=== PATIENT | female | born 1965 | race Caucasian/White ===

== ENCOUNTER → 2016-04-13 | Outpatient (CLI) | payer OTHER ==
[2016-04-13 17:15] LABS: HEMOGLOBIN 13.2 gm/dl (12.3-15.3); RED BLOOD COUNT 4.63 M/UL (4.00-5.10); WHITE BLOOD COUNT 4.7 K/UL (4.5-11.0)
[2016-04-13 17:30] LABS: BUN/CREATININE RATIO 12 (0-10)
== END ==
LOC: LAB 15:04
PROVIDERS: Nurse Practitioner
DX: I10 Essential (primary) hypertension (principal); E78.5 Hyperlipidemia, unspecified; E55.9 Vitamin D deficiency, unspecified; M79.7 Fibromyalgia
CPT/HCPCS: 36415; 80053; 80061; 84436; 84443; 84480; 85025

== ENCOUNTER → 2020-03-12 | Outpatient (CLI) | payer BC, MEDICARE | LOC: LAB 15:18 | DX: E87.6 Hypokalemia (principal); E53.8 Deficiency of other specified B group vitamins | CPT/HCPCS: 36415; 82607; 84132 ==

== ENCOUNTER → 2020-06-24 | Outpatient (CLI) | payer BC, MEDICARE ==
[2020-06-24 12:42] LABS: HEMOGLOBIN 13.9 gm/dl (12.3-15.3); RED BLOOD COUNT 4.77 M/UL (4.00-5.10); WHITE BLOOD COUNT 6.4 K/UL (4.5-11.0)
[2020-06-24 15:32] LABS: BUN/CREATININE RATIO 11 (0-10)
[2020-06-25 08:14] LABS: THYROXINE (T4) 9.1 ug/dL (4.5-12.0); VITAMIN D, 25-HYDROXY 31.1 ng/mL (30.0-100.0)
== END ==
LOC: LAB 11:37
PROVIDERS: Nurse Practitioner
DX: E55.9 Vitamin D deficiency, unspecified (principal); E78.5 Hyperlipidemia, unspecified; I10 Essential (primary) hypertension; R30.0 Dysuria
CPT/HCPCS: 36415; 80053; 80061; 84436; 84443; 84480; 85025; 87086

== ENCOUNTER → 2020-08-19 | Outpatient (CLI) | payer BC, MEDICARE ==
[2020-08-19 17:27] LABS: BUN/CREATININE RATIO 9 (0-10)
== END ==
LOC: LAB 15:11
PROVIDERS: Nurse Practitioner
DX: E78.5 Hyperlipidemia, unspecified (principal)
CPT/HCPCS: 36415; 80053; 80061

== ENCOUNTER → 2020-10-15 | Outpatient (CLI) | payer BC, MEDICARE | LOC: RAD 11:51 | DX: U07.1 COVID-19 (principal) | CPT/HCPCS: 71046 ==

== ENCOUNTER → 2020-12-14 | Outpatient (CLI) | payer BC, MEDICARE | LOC: RAD 15:16 | DX: U07.1 COVID-19 (principal) | CPT/HCPCS: 71046 ==

== ENCOUNTER → 2021-03-06 | Outpatient (CLI) | payer BC, MEDICARE | LOC: RAD 13:00 | DX: M53.3 Sacrococcygeal disorders, not elsewhere classified (principal); M47.818 Spondylosis without myelopathy or radiculopathy, sacral and sacrococcygeal region | CPT/HCPCS: 72202 ==

== ENCOUNTER → 2021-03-06 | Outpatient (CLI) | payer BC, MEDICARE ==
[2021-03-06 13:47] LABS: HEMOGLOBIN 14.8 gm/dl (12.3-15.3); RED BLOOD COUNT 5.05 M/UL (4.00-5.10); WHITE BLOOD COUNT 7.3 K/UL (4.5-11.0)
[2021-03-06 14:24] LABS: BUN/CREATININE RATIO 15 (0-10)
== END ==
LOC: LAB 13:14
PROVIDERS: Nurse Practitioner
DX: I10 Essential (primary) hypertension (principal); E78.5 Hyperlipidemia, unspecified; F32.9 Major depressive disorder, single episode, unspecified; E55.9 Vitamin D deficiency, unspecified; M54.50 Low back pain, unspecified; R53.83 Other fatigue
CPT/HCPCS: 80053; 80061; 81001; 84436; 84443; 84480; 85025

== ENCOUNTER → 2021-06-23 | Outpatient (CLI) | payer BC, MEDICARE ==
[2021-06-23 16:39] LABS: HEMOGLOBIN 12.2 gm/dl (12.3-15.3); RED BLOOD COUNT 4.15 M/UL (4.00-5.10); WHITE BLOOD COUNT 5.3 K/UL (4.5-11.0)
[2021-06-23 16:59] LABS: BUN/CREATININE RATIO 15 (0-10)
[2021-06-25 07:12] LABS: THYROXINE (T4) 7.6 ug/dL (4.5-12.0)
[2021-06-25 08:15] LABS: VITAMIN D, 25-HYDROXY 38.5 ng/mL (30.0-100.0)
== END ==
LOC: LAB 15:43
PROVIDERS: Nurse Practitioner
DX: E03.9 Hypothyroidism, unspecified (principal); E55.9 Vitamin D deficiency, unspecified; I10 Essential (primary) hypertension; E78.5 Hyperlipidemia, unspecified; R53.83 Other fatigue; F41.9 Anxiety disorder, unspecified
CPT/HCPCS: 36415; 80053; 80061; 81001; 84436; 84443; 84480; 85025

== ENCOUNTER → 2021-07-31 | Outpatient (CLI) | payer BC, MEDICARE ==
[2021-07-31 19:25] LABS: HEMOGLOBIN 13.8 gm/dl (12.3-15.3); RED BLOOD COUNT 4.67 M/UL (4.00-5.10); WHITE BLOOD COUNT 5.5 K/UL (4.5-11.0)
[2021-08-02 09:27] LABS: VITAMIN D, 25-HYDROXY 51.9 ng/mL (30.0-100.0)
[2021-08-02 11:15] LABS: THYROXINE (T4) 8.4 ug/dL (4.5-12.0)
== END ==
LOC: LAB 18:27
PROVIDERS: Nurse Practitioner
DX: E05.90 Thyrotoxicosis, unspecified without thyrotoxic crisis or storm (principal); D64.9 Anemia, unspecified; D72.829 Elevated white blood cell count, unspecified; R53.83 Other fatigue
CPT/HCPCS: 81001; 82607; 84436; 84443; 84480; 85025

== ENCOUNTER → 2021-10-13 | Outpatient (CLI) | payer BC, MEDICARE | LOC: RAD 18:25 | DX: M25.512 Pain in left shoulder (principal) | CPT/HCPCS: 73030 ==